=== PATIENT | female | born 1975 | race Caucasian/White ===

== ENCOUNTER 2016-09-09 18:58 | Emergency (ER) | payer BC, OTHER ==
[~2016-09-09] VITALS: Ht 162.6 cm; Wt 81.8 kg
[~2016-09-09 18:58] MED LIST: ACET-789 PO; CEPH-507 PO; CODE473S2 PO; CRUT1EAC7 MC; HYDR-3811 PO; IBUP-362 PO; OMEP20TA PO; ONDAN4ODT PO; PRED50TA PO; PRM25T PO; TIZAN4T PO; [UNRECOGNIZED DRUG - CODE] OD; no home medication; prozac
[2016-09-09] MEDS ORDERED: SODIUM CHLORIDE FLUSH 10 ML SYR IV PRN (20:00)
[2016-09-09] MEDS ORDERED: HYDROmorphone 1 MG/ML (DILAUDID) SYRINGE IV PRN (20:00)
[2016-09-09] MEDS ORDERED: ONDANSETRON 2 MG/ML (Z0FRAN) 2 ML VIAL IV ONE ×2 (20:00→21:40)
[2016-09-09] MEDS ORDERED: SODIUM CHLORIDE FLUSH 3 ML SYR IV PRN (20:00)
[2016-09-09 20:24] LABS: BILIRUBIN,URINE Negative (Negative); CLARITY,URINE Clear; COLOR,URINE Yellow; GLUCOSE, URINE (UA) Negative (Negative); LEUKOCYTE ESTERASE ,URINE Negative (Negative); PH,URINE 7.5 (5.0 - 8.0)
[2016-09-09 20:25] LABS: BASOPHILS % (AUTO) 2 % (0-2); EOSINOPHILS # (AUTO) 0.2 10^3uL; EOSINOPHILS % (AUTO) 2 % (0-4); LYMPHOCYTES # (AUTO) 2.9 X10^3; MEAN CORPUSCULAR HEMOGLOBIN 31.1 PG (26.0-34.0); MEAN CORPUSCULAR HGB CONC 34.8 g/dL (31.0-37.0); MEAN CORPUSCULAR VOLUME 89 FL (80-100); MEAN PLATELET VOLUME 9.4 FL (6.0-9.5); MONOCYTES # (AUTO) 0.5 X10^3; MONOCYTES % (AUTO) 7 % (3-11); NEUTROPHILS # (AUTO) 4.3 X10^3; NEUTROPHILS % (AUTO) 53 % (51-67); PLATELET COUNT 267 10^3uL (150-450); WHITE BLOOD COUNT 8.14 10^3uL (4.0-11.0)
[2016-09-09 20:32] LABS: RBC,URINE 0-2 /HPF; URINE CENTRIFUGED VOLUME 10 mL
[2016-09-09 20:37] LABS: ALBUMIN 3.8 g/dL (3.4-5.0); ANION GAP 13.6 MEQ/L (3-15); CALCULATED IONIZED CALCIUM 3.9 mg/dL (3.8-4.6); TOTAL PROTEIN 7.1 g/dL (6.4-8.5)
--- NOTE | 2016-09-09 21:35 | NUR ---
pt was going to go to Radiology but the pt's spouse asked for the RN to come and check pt because he feels like she is pale, and clammy. RN and Dr. Egan went in to see pt, noted with lights on that pt has pink cheeks, her lips are pink, tounge a bit dry, BP checked with a more appropriate cuff. Pt has not had any diarrhea stools or vomiting while in the ED.
[2016-09-09] MEDS ORDERED: ONDANSETRON 2 MG/ML (Z0FRAN) 2 ML VIAL ONE (21:40)
--- NOTE | 2016-09-09 21:45 | NUR ---
Gave pt some Zofran for nausea, pt states that she has been having some nausea continuing off and on while in ED, with no vomiting, when RN went into the room pt started crying, asked pt if she was ok, she stated "I just don't feel good". Explained to pt that RN understands she doesn't feel good, and doctor wants to wait on pain meds R/T her nausea, and low BP. RN will come back and check on her, we will see if we can get her nausea under control and get her abd xrays done
[2016-09-09 22:07] LABS: AMPHETAMINE SCREEN, URINE Negative (Negative); CANNABINOID SCREEN, URINE Negative (Negative); METHAMPHETAMINE SCREEN URINE S NEGATIVE (NEGATIVE); OPIATE SCREEN URINE Negative (Negative); PROPOXYPHENE STAT NEGATIVE (NEGATIVE)
--- NOTE | 2016-09-09 22:35 | NUR ---
Pt has been resting, went in to check on pt, she does state that she feels like she could go to xray now, radiology called.
--- NOTE | 2016-09-09 22:51 | NUR ---
pt back from radiology, pt resting
[2016-09-10 00:06] VITALS: BP 110/58
--- NOTE | 2016-09-10 08:31 | Diagnostic Imaging Report ---
INDICATION: Abdominal pain. FINDINGS: Supine and upright abdominal images were obtained. There is no retroperitoneal free air. The bowel gas pattern is normal. There are no pathologic masses or calcifications. IMPRESSION: No acute abnormality is seen in the abdomen. Dictated by: Dictated on workstation # [id number]
[2016-10-21] MEDS ORDERED: ONDA4TAB8 PO (22:57)
== END 2016-09-09 23:55 | disposition home or self-care (01) ==
LOC: ED 18:59
DX: R11.2 Nausea with vomiting, unspecified (principal); R19.7 Diarrhea, unspecified
CPT/HCPCS: 36415; 74020; 80053; 80307; 81003; 81015; 82150; 83690; 85025; 96361; 96374; 96375; 99284; J1170; J2405; J7030; 99283

== ENCOUNTER 2016-10-21 18:36 | Emergency (ER) | payer BC, OTHER ==
[~2016-10-21] VITALS: Ht 162.6 cm; Wt 81.8 kg
[2016-10-21] MEDS ORDERED: ONDANSETRON 2 MG/ML (Z0FRAN) 2 ML VIAL IV ONE (20:40)
[2016-10-21] MEDS ORDERED: KETOROLAC 30 MG/ML (TORADOL) 1 ML VIAL IV ONE (20:40)
[2016-10-21] MEDS ORDERED: diphenhydrAMINE 50 MG/ML INJ (BENADRYL) IV ONE (20:40)
[2016-10-21 21:33] LABS: BASOPHILS % (AUTO) 0 % (0-2); EOSINOPHILS # (AUTO) 0.1 10^3uL; EOSINOPHILS % (AUTO) 3 % (0-4); LYMPHOCYTES # (AUTO) 2.1 X10^3; MEAN CORPUSCULAR HEMOGLOBIN 31.1 PG (26.0-34.0); MEAN CORPUSCULAR HGB CONC 34.3 g/dL (31.0-37.0); MEAN CORPUSCULAR VOLUME 91 FL (80-100); MEAN PLATELET VOLUME 9.2 FL (6.0-9.5); MONOCYTES # (AUTO) 0.5 X10^3; MONOCYTES % (AUTO) 9 % (3-11); NEUTROPHILS # (AUTO) 2.5 X10^3; NEUTROPHILS % (AUTO) 47 % (51-67); PLATELET COUNT 256 10^3uL (150-450)
[2016-10-21 21:48] LABS: ALBUMIN 3.7 g/dL (3.4-5.0); ANION GAP 12.7 MEQ/L (3-15); TOTAL PROTEIN 6.6 g/dL (6.4-8.5)
[2016-10-21 23:15] VITALS: BP 102/65
== END 2016-10-21 23:23 | disposition home or self-care (01) ==
LOC: ED 18:37
DX: K52.9 Noninfective gastroenteritis and colitis, unspecified (principal)
CPT/HCPCS: 36415; 80053; 83690; 85025; 96361; 96374; 96375; 99283; J1200; J1885; J2405; J7030